=== PATIENT | female | born 1995 | race Two or more races ===

== ENCOUNTER 2024-12-14 17:47 | Emergency (ER) | payer OTHER ==
[~2024-12-14] VITALS: Ht 154.9 cm; Wt 65.3 kg
[2024-12-14] MEDS ORDERED: IRON236 MG (18:03)
[2024-12-14] MEDS ORDERED: FOLIC ACID20 MG (18:03)
[2024-12-14] MEDS ORDERED: 0.9 % SODIUM CHLORIDE 1,000 ML IV ONE (19:15)
[2024-12-14] MEDS ORDERED: FAMOTIDINE/PF 20 MG/2 ML VIAL IV PUSH ONE (19:15)
[2024-12-14] MEDS ORDERED: METOCLOPRAMIDE HCL 10 MG in 0.9 % SODIUM CHLORIDE 50 ML IV ONE (19:15)
[2024-12-14 19:49] LABS: BASO % 0.3 % (0.1-1.2); EOS # 0.06 (0.04-0.54); EOS % 0.5 % (0.7-7.0); LYMPH # 1.66 (1.18-3.74); LYMPH % 14.7 % (19.3-53.1); MEAN PLATELET VOLUME 8.90 fl (9.4-12.4); MONO # 0.68 (0.24-0.82); MONO % 6.0 % (4.7-12.5); NEUT # 8.83 (1.56-6.13); NEUT % 78.1 % (34.0-71.1); RED CELL DISTRIBUTION WIDTH 13.9 % (11.6-14.4)
[2024-12-14 20:24] LABS: BUN CREA RATIO 16.0 (7.0-25.0); CREATININE SERUM 0.63 mg/dL (0.55-1.02); GFR 112.52; GLUCOSE FASTING 83.0 mg/dL (65-100); OSMOLALITY SERUM 278.0 MOSM/KG (275-295)
[2024-12-14 20:30] LABS: HCG QUANTITATIVE 39042.0 mUI/mL (1-3)
[2024-12-14 21:39] LABS: URINE APPEARANCE Clear; URINE BILIRRUBIN Small (NEGATIVE); URINE BLOOD Negative; URINE COLOR Dark Yellow; URINE GLUCOSE Negative (NEGATIVE); URINE LEUKOCYTE Trace; URINE NITRATE Negative; URINE PROTEIN 30 (NEGATIVE); URINE UROBILINOGEN 1.0 E.U./dl
[2024-12-14 21:43] LABS: URINE BACTERIA 1363.2 uL (0.0-1933); URINE EPITHELIAL CELLS 57.0 uL (0.0-38.8); URINE RBC 3.6 uL (0.0-20.8); URINE WBC 30.1 uL (0.0-23.2)
[2024-12-14 21:53] LABS: URINE CAST 0.58 uL (0.0-1.40); URINE KETONE >=160 (NEGATIVE)
[2024-12-14 22:02] LABS: URINE CRYSTALS FEW /HPF; URINE MUCUS MODERATE
[2024-12-14 22:03] LABS: TYPE CELLS SQUAMOUS
== END 2024-12-14 23:27 | disposition home or self-care (01) ==
LOC: ER 17:47
PROVIDERS: Emergency Medicine
DX: O21.0 Mild hyperemesis gravidarum (principal); Z3A.15 15 weeks gestation of pregnancy

== ENCOUNTER 2024-12-19 16:31 | Emergency (ER) | payer OTHER ==
[~2024-12-19] VITALS: Ht 154.9 cm; Wt 65.8 kg
[~2024-12-19 16:31] MED LIST: FOLIC ACID20 MG; IRON236 MG
[2024-12-19] MEDS ORDERED: RINGERS SOLUTION,LACTATED 1,000 ML IV STA (19:03)
[2024-12-19 20:42] LABS: BASO % 0.1 % (0.1-1.2); EOS # 0.10 (0.04-0.54); EOS % 1.0 % (0.7-7.0); LYMPH # 2.02 (1.18-3.74); LYMPH % 20.0 % (19.3-53.1); MEAN PLATELET VOLUME 9.30 fl (9.4-12.4); MONO # 0.81 (0.24-0.82); MONO % 8.0 % (4.7-12.5); NEUT # 7.12 (1.56-6.13); NEUT % 70.6 % (34.0-71.1); RED CELL DISTRIBUTION WIDTH 13.8 % (11.6-14.4)
[2024-12-19 21:28] LABS: BUN CREA RATIO 9.0 (7.0-25.0); CREATININE SERUM 0.64 mg/dL (0.55-1.02); GFR 110.49; GLUCOSE FASTING 85.0 mg/dL (65-100); OSMOLALITY SERUM 274.0 MOSM/KG (275-295)
[2024-12-19 21:29] LABS: HCG QUANTITATIVE 30435.0 mUI/mL (1-3)
[2024-12-19 23:14] LABS: URINE APPEARANCE Clear; URINE BILIRRUBIN Negative (NEGATIVE); URINE BLOOD Negative; URINE COLOR Yellow; URINE GLUCOSE Negative (NEGATIVE); URINE KETONE Negative (NEGATIVE); URINE LEUKOCYTE Moderate; URINE NITRATE Negative; URINE PROTEIN Negative (NEGATIVE); URINE UROBILINOGEN 0.2 E.U./dl
[2024-12-19 23:18] LABS: URINE BACTERIA 3172.6 uL (0.0-1933); URINE EPITHELIAL CELLS 39.8 uL (0.0-38.8); URINE RBC 4.5 uL (0.0-20.8); URINE WBC 146.7 uL (0.0-23.2)
[2024-12-19 23:20] LABS: URINE CAST 0.14 uL (0.0-1.40)
== END 2024-12-19 23:47 | disposition home or self-care (01) ==
LOC: ER 16:32
PROVIDERS: General Practice
DX: O20.8 Other hemorrhage in early pregnancy (principal); Z3A.15 15 weeks gestation of pregnancy

== ENCOUNTER → 2025-01-24 07:33 | Outpatient (CLI) | payer OTHER | END | disposition home or self-care (01) | LOC: PRENATAL 07:33 | PROVIDERS: ATTEND Obstetrics & Gynecology Maternal & Fetal Medicine | DX: O44.00 Complete placenta previa NOS or without hemorrhage, unspecified trimester (principal); Z3A.21 21 weeks gestation of pregnancy ==

== ENCOUNTER 2025-04-13 15:39 | Outpatient (CLI) | payer OTHER | END 2025-04-13 15:40 | disposition home or self-care (01) | LOC: PRENATAL 15:39 | PROVIDERS: ATTEND Obstetrics & Gynecology Maternal & Fetal Medicine | DX: O26.843 Uterine size-date discrepancy, third trimester (principal); O36.8130 Decreased fetal movements, third trimester, not applicable or unspecified; O36.63X0 Maternal care for excessive fetal growth, third trimester, not applicable or unspecified; Z3A.33 33 weeks gestation of pregnancy ==